=== PATIENT | female | born 1965 | race Two or more races ===

== ENCOUNTER 2021-08-27 10:38 | Outpatient (CLI) | payer OTHER | END 2021-08-27 10:50 | disposition home or self-care (01) | LOC: SONOGRAMA 10:38 | PROVIDERS: ATTEND Internal Medicine Gastroenterology | DX: E04.8 Other specified nontoxic goiter (principal) ==

== ENCOUNTER 2024-08-09 09:29 | Outpatient (CLI) | payer OTHER | END 2024-08-09 09:37 | disposition home or self-care (01) | LOC: SONOGRAMA 09:29 | PROVIDERS: ATTEND Obstetrics & Gynecology Gynecology | DX: N60.11 Diffuse cystic mastopathy of right breast (principal); N60.12 Diffuse cystic mastopathy of left breast; Z85.3 Personal history of malignant neoplasm of breast ==

== ENCOUNTER 2025-01-13 07:40 | Outpatient (CLI) | payer OTHER | END 2025-01-13 07:41 | disposition home or self-care (01) | LOC: NUCLEAR 07:40 | PROVIDERS: ATTEND Obstetrics & Gynecology Gynecology | DX: I10 Essential (primary) hypertension (principal) ==